=== PATIENT | male | born 1980 | race Caucasian/White ===

== ENCOUNTER → 2018-10-02 | Day surgery (SDC) | payer OTHER ==
[~2018-10-02] MED LIST: ATOR20TA PO; BREO ELLIPTA 11 EACH IH; CETI10TA22 PO; CYCL10TA2 PO; DULO60CA6 PO; IV RINGERS,LACTATED 1000ML 1,000 ML IV SCH; LIDOCAINE 1% PF 2 ML VIAL. ID PRN; MIDAZOLAM HCL/PF 2 MG/2 ML VIAL. IV PRN; OMEP40CA5 PO; PROPOFOL 40 ML IV ONE; VENTOLIN HFA18 GM INH; fentaNYL PF VIAL 100 MCG/2 ML VIAL IV PRN
[2018-10-02 12:20] VITALS: BP 113/83
== END ==
LOC: SURG 10:15
PROVIDERS: ATTEND Surgery
DX: R10.31 Right lower quadrant pain (principal); R10.32 Left lower quadrant pain; K21.9 Gastro-esophageal reflux disease without esophagitis; E78.5 Hyperlipidemia, unspecified; F41.9 Anxiety disorder, unspecified; K44.9 Diaphragmatic hernia without obstruction or gangrene; J45.909 Unspecified asthma, uncomplicated; Z98.890 Other specified postprocedural states; Z87.891 Personal history of nicotine dependence; Z72.89 Other problems related to lifestyle
CPT/HCPCS: 45378; J2704